=== PATIENT | male | born 1950 | race Caucasian/White ===

== ENCOUNTER 2023-07-05 08:56 | Outpatient (CLI) | payer OTHER, SELFPAY ==
--- NOTE | 2023-07-05 09:30 | ECG_ITS ---
Measurements Intervals [place] Rate: 54 P: 44 RI: 216 QRS: 14 QRSD: 87 T: 31 QT: 391 QTc: 373 Interpretive Statements SINUS BRADYCARDIA WITH FIRST DEGREE AV BLOCK OTHERWISE NORMAL ECG WARNING: DATA QUALITY MAY AFFECT INTERPRETATION NO PREVIOUS ECG AVAILABLE FOR COMPARISON Electronically Signed On 07-05-2023 10:46:54 [employer] by William Medina M.D.
[2023-07-05 10:00] LABS: Anion Gap 4 mmol/L (8-16); Blood Urea Nitrogen 16 mg/dL (9-20); Calcium 8.8 mg/dL (8.4-10.2); Carbon Dioxide 28 mmol/L (22-30); Chloride 106 mmol/L (98-107); Estimated Glomerular Filt Rate > 60; Glucose 96 mg/dL (65-110); Potassium 4.6 mmol/L (3.4-5.0); Sodium 138 mmol/L (137-145)
== END 2023-07-05 08:57 | disposition home or self-care (01) ==
LOC: ANHSURGERY 09:02
PROVIDERS: Anesthesiology; PCP Internal Medicine Geriatric Medicine; Visit Provider Surgery
DX: K42.9 Umbilical hernia without obstruction or gangrene (principal); I10 Essential (primary) hypertension; Z01.818 Encounter for other preprocedural examination; I44.0 Atrioventricular block, first degree
CPT/HCPCS: 36415; 80048; 86850; 86900; 86901; 93005

== ENCOUNTER 2023-07-10 02:08 | Day surgery (SDC) | payer OTHER, SELFPAY ==
--- NOTE | 2023-07-04 15:17 | PC.NURSE ---
Report to the Outpatient Waiting Room, entrance under the green pavilion located off [facility], at time __0730 on date __07/10/23 . Planned Procedure Time: _30 . Time changes happen often and if your time is changed the preop area will call you the afternoon before. - You and your visitor will be asked to self-screen and do not enter if you have any COVID symptoms. - A mask is optional within the hospital at this time. Patients may have clear liquids (water, carbonated beverages, clear teas, apple juice) until 3 hours prior to surgery (6:30 AM)with a maximum of 20 ounces. - No food from midnight until time of surgery Take the following medications with a SIP of water the morning of surgery: ____METOPROLOL DO NOT STOP ANY OF YOUR OTHER PRESCRIPTION MEDICATIONS PRIOR TO SURGERY ?EXCEPT THE FOLLOWING Medications to discontinue per physician ___ALL VITAMINS HOLD 3 DAYS PRE OP.LAST DOSE 07/06/23 Please no make-up, nail english, hairspray, perfume, deodorant, or body powder the day of surgery. No jewelry (including any body piercings) or valuables the day of surgery, leave them at home. Please take a shower or bath the night before, or the morning of, surgery with an antibacterial soap. Wear comfortable, loose fitting clothing. Children are encouraged to wear pajamas. - Jewelry must be removed prior to entering the operating room. Rings and piercings that are not removed may be cut off. - The hospital will not accept responsibility for valuables. - Please leave all valuables, including medications, at home the day of surgery. If you are going home after surgery, a licensed driver license examiner must drive you home. - NO public transportation without another adult if you receive anesthesia. - We recommend that an adult stay with you for 24 hours following discharge. - We also recommend that you do not drive, make important decision, drink alcoholic beverages, or take any drugs that were not prescribed by your health care provider for at least 24 hours after your discharge time. For Pediatric surgeries, we recommend two adults accompany the child home. Follow any additional instructions given to you from your surgeon. If you or anyone in your household have experienced Covid symptoms in the past week, please notify your surgeon or the nurse liaison at the phone number below for possible testing. Telephone instructions given to ___PATIENT and asked if any additional questions and then verbalized understanding. Patient advised to call surgeon office or pre surgery nurse liaison [phone] if any additional questions.
[2023-07-04 15:25] VITALS: BMI 34.8
[2023-07-10] VITALS (10 sets, daily range): BP systolic 112–139; BP diastolic 51–70; PULSE 48–64; RESP 14–16; TEMP 36.4–36.8; O2SAT 99–100
--- NOTE | 2023-07-10 08:21 | PM.IMHP ---
H&P: HPI History of Present Illness Date/Time: 07/10/23 08:21 Chief Complaint: Umbilical hernia Narrative: This is a 72-year-old man who presents for umbilical hernia repair. He denies any changes since last seen in the office. Review of Systems Review of Systems: All systems reviewed & are unremarkable except as noted in HPI and below Constitutional: Constitutional: Denies chills, Denies fever(s), Denies headache(s) and Denies weight loss Eyes: Eyes: Denies change in vision ENT: Denies dizziness, Denies headache(s), Denies neck mass and Denies throat swelling Cardiovascular: Cardiovascular: Denies chest pain, Denies lightheadedness and Denies dyspnea Respiratory: Respiratory: Denies cough, Denies dyspnea and Denies wheezing Gastrointestinal: Gastrointestinal: Denies abdominal pain, Denies change in bowel habits, Denies nausea and Denies vomiting Genitourinary: Genitourinary: Denies hematuria and Denies dysuria Musculoskeletal: Musculoskeletal: Reports as per HPI Integumentary/Breasts: Skin/Breast: Reports as per HPI Neurologic: Denies dizziness and Denies headache(s) Allergic/Immunologic: Allergic/Immunologic: Denies throat swelling and Denies wheezing PMF Past Medical History Medical History (Updated 05/31/23 @ 10:05 by Jacqueline Amato) Heart disease Hypertension Surgical History Surgical History (Updated 05/31/23 @ 09:55 by Jacqueline Amato) History of intravascular stent placement ~ 2012 Family History Family History Father Heart disease Mother Hypertension Social History Social History (Updated 05/31/23 @ 09:43 by Spring Major MA) Smoking status: Never smoker Alcohol intake: current Drinks per week: 20 Living arrangements: with family Occupation/Education: retired Spiritual care concerns: No Meds Home Medications and Allergies Home Medications Medication Instructions Recorded Confirmed Type aspirin 81 mg capsule 81 mg PO DAILY 05/31/23 07/04/23 History lisinopril 20 mg tablet 20 mg PO DAILY 05/31/23 07/04/23 History metoprolol succinate 50 mg 50 mg PO DAILY 05/31/23 07/04/23 History tablet,extended release 24 hr naltrexone 50 mg tablet 50 mg PO DAILY 05/31/23 07/04/23 History omeprazole 20 mg capsule,delayed 20 mg PO DAILY 05/31/23 07/04/23 History release rosuvastatin 40 mg tablet 40 mg PO DAILY 05/31/23 07/04/23 History tamsulosin 0.4 mg capsule 0.4 mg PO DAILY 05/31/23 07/04/23 History torsemide 10 mg tablet 10 mg PO QAM 05/31/23 07/04/23 History cyanocobalamin (vitamin B-12) 1,000 mcg PO DAILY 07/04/23 07/04/23 History 1,000 mcg tablet Allergies Allergy/AdvReac Type Severity Reaction Status Date / Time No Known Allergies Allergy Verified 07/10/23 08:00 Exam Const: General: no acute distress and alert Orientation/consciousness: patient oriented x3 HENMT: Head: normocephalic and atraumatic Ears: hearing grossly normal bilaterally Face/Nose/Sinus: Normal nares present Mouth: Yes Normal oral and palatal mucosa present Eyes: Periorbital: periorbital findings normal Sclera: sclerae normal EOM: EOMs intact bilaterally Neck: Neck: normal visual inspection, no lymphadenopathy and trachea midline Chest: Chest palpation & inspection: normal inspection of the chest Resp: Effort & Inspection: normal respiratory effort Auscultation: clear to auscultation bilaterally Cardio: Jugular venous distension: no JVD Rate: regular rate Rhythm: regular rhythm Heart sounds: S1 normal heart sound present and S2 normal heart sound present Peripheral pulses: Peripheral pulses 2+ throughout GI: Inspection: normal to inspection GI Palp: Yes Soft to palpation, No Tenderness to palpation present (GI), No Guarding due to palpation present (GI), Yes Hernia present umbilical 3-10 cm (Reducible) and No Rebound tenderness present Percussion: Yes normal to percussion Auscultat
--- NOTE | 2023-07-10 08:22 | WPDANESEPPF ---
Anes - Initial Pre Proc Eval Procedure: Operation Date: 07/10/23 09:30 Proposed Procedures p Laparoscopic Umbilical Hernia Repair with Mesh, Davinci Assisted - Jasiel Adams DO Date/Time: 07/10/23 08:22 Surgeon: Jasiel Adams DO Pre Op Diagnosis: 3cm umbilical hernia Patient Data Age: 72 Gender: M Height: 1.8 m Weight: 113.4 kg Allergies Allergy/AdvReac Type Severity Reaction Status Date / Time No Known Allergies Allergy Verified 07/10/23 08:00 Home Medications Medication Instructions Recorded Confirmed Type aspirin 81 mg capsule 81 mg PO DAILY 05/31/23 07/04/23 History lisinopril 20 mg tablet 20 mg PO DAILY 05/31/23 07/04/23 History metoprolol succinate 50 mg 50 mg PO DAILY 05/31/23 07/04/23 History tablet,extended release 24 hr naltrexone 50 mg tablet 50 mg PO DAILY 05/31/23 07/04/23 History omeprazole 20 mg capsule,delayed 20 mg PO DAILY 05/31/23 07/04/23 History release rosuvastatin 40 mg tablet 40 mg PO DAILY 05/31/23 07/04/23 History tamsulosin 0.4 mg capsule 0.4 mg PO DAILY 05/31/23 07/04/23 History torsemide 10 mg tablet 10 mg PO QAM 05/31/23 07/04/23 History cyanocobalamin (vitamin B-12) 1,000 mcg PO DAILY 07/04/23 07/04/23 History 1,000 mcg tablet Patient hx anesthesia problems: none Family hx anesthesia problems: none Results Review: All pre-operative results and documents have been reviewed as part of the pre-operative evaluation. [facility] Past Medical History Medical History Heart disease Hypertension Surgical History Surgical History History of intravascular stent placement ~ 2012 Family History Family History Father Heart disease Mother Hypertension Social History Social History Smoking status: Never smoker Alcohol intake: current Drinks per week: 20 Living arrangements: with family Occupation/Education: retired Spiritual care concerns: No Anes - Eval Final PreProcedure Day of Procedure 07/10/23 08:22 Patient weight: obese Heart: regular rate and rhythm Lungs: clear to auscultation Airway: Mallampati scale class II Neurological: alert and oriented Last oral intake: >/= 8 hours ASA classification: III Emergent: no Anesthetic plan: proceed Anesthesia type and monitoring: general ETT and standard monitoring Results Review: All pre-operative results and documents have been reviewed as part of the pre-operative evaluation. Informed Consent: The patient's anesthetic plan and its attendant risks and benefits were discussed with the patient/family/POA. Questions were solicited and answers provided to the satisfaction of the patient/family/POA.
--- NOTE | 2023-07-10 08:23 | WPDHPUPDATE1 ---
History and Physical Update Update Date/Time: 07/10/23 08:23 History and Physical has been reviewed, including an updated exam of the patient. There are NO changes in the patient's condition. Risks, benefits, and alternatives have been discussed and questions answered. Patient agrees to proceed with procedure.
[2023-07-10] MEDS: ACETAMINOPHEN 500 MG TABLET 1000 MG PO (08:24)
[2023-07-10] MEDS: LACTATED RINGERS 1,000 ML 30 ML IV CONT ×2 (08:30→10:41)
[2023-07-10] MEDS: KETOROLAC 15 MG/ML VIAL (*BKC) IV PUSH (08:50)
[2023-07-10] MEDS: ceFAZolin 2 GM/D5W 50 ML 2 GM/50 ML BAG IVPB (08:51)
[2023-07-10] MEDS: BUPIVACAINE/EPINEPHRINE 0.5% 50 ML VIAL 30 ML INFILTRATE (09:34)
--- NOTE | 2023-07-10 10:30 | W.PM.PROC2 ---
Procedure Note - Detailed Date of Procedure 07/10/23 Pre-op Diagnosis umbilical hernia Post-op Diagnosis Same (3cm umbilical hernia) Procedure Performed Laparoscopic 3 cm umbilical hernia repair with mesh, da Wliver assisted Surgeon Jasiel Adams, DO Anesthesia General and Local (0.5% bupivacaine with epinephrine) Indications This is a 72-year-old man who presented with an umbilical hernia that he 1st noticed about 3 or 4 years ago. It has gradually increased in size and causes occasional discomfort. Overall he is asymptomatic. He was worried about the hernia getting larger and because he has to do a lot of physical activity helping his around the house. A 3 cm umbilical hernia was identified on physical exam. Discussions were made with the patient about treatment options and decision was made to proceed with robotic assisted laparoscopic umbilical hernia repair with mesh. Findings Laparoscopic umbilical hernia repair was performed. The patient was found have a 3 cm umbilical hernia containing preperitoneal. A robotic transabdominal preperitoneal approach was utilized for repair. Once a wide enough preperitoneal pocket was created, I then closed the hernia defect using 0 Stratafix running absorbable suture. Then chose Bard soft mesh 15 cm x [address] within the preperitoneal pocket. No specimens were obtained for pathology. Description of Procedure Procedure as well as risks, benefits, and alternatives were discussed with the patient. Written consent was obtained and placed in chart prior to procedure. Patient was brought back to surgical suite. He was placed supine on operating table. Time-out was done to confirm patient and procedure. He was then intubated by the anesthesia department. A bump was placed under his left hip, and the bed was flexed slightly to extend the space between his costal margin and iliac crest. His abdomen was prepped and draped in sterile fashion using chlorhexidine prep. A 5 millimeter incision was made in the left upper quadrant, and a 5 millimeter Optiview trocar was advanced through the abdominal layers under direct visualization. Once inside the abdominal cavity, carbon dioxide insufflation was used to create a pneumoperitoneum. His abdomen was inspected. An 8 millimeter incision was made in the left lower quadrant, and an 8 millimeter robotic trocar was placed under direct visualization. Another 8 millimeter incision was made in the left lateral abdomen, and an 8 millimeter robotic trocar was placed under direct visualization. 0.5% bupivacaine with epinephrine was infiltrated around each port site. The 5 millimeter port was removed, and an 8 mm robotic trocar was placed under direct visualization. The robotic arms were brought up to the patient's bedside and secured to the ports. The camera and instruments were inserted, and I then moved over to the robotic console and took control of the camera and instruments. After careful thorough inspection of the abdominal cavity, I began my dissection at the hernia. A preperitoneal pocket was started in the left upper quadrant using scissors with electrocautery. The preperitoneal space was then carefully dissected caudally and medially. Hernia sac was reduced and then the preperitoneal plane was dissected further to the right lateral abdomen. I then measured the hernia size. The hernia measured 3 cm. The fascia was closed using an 0-Stratafix running suture in a vertical fashion. A Bard soft mesh 15 cm x 15 cm was then placed within the preperitoneal space. This was oriented vertically with the mesh centered on the hernia defect. The mesh was then secured to the abdominal at the center and 4 corners using 3-0 Vicryl simple interrupted sutures. Peritoneum was then closed over the mesh using a 3 0 V lock running absorbable suture. The repair was inspected, and one final inspection was made around the abdominal cavity. The robotic instruments were then removed
[2023-07-10] MEDS: fentaNYL CITRATE INJ (*CRX) 100 MCG/2 ML VIAL 25 MCG IV PUSH ×4 (10:55→11:22)
[2023-07-10] MEDS: oxyCODONE HCL (*CRX) 5 MG TAB IR PO (12:18)
== END 2023-07-10 13:08 | disposition home or self-care (01) ==
PROVIDERS: PCP Internal Medicine Geriatric Medicine; Visit Provider Surgery
PROC: (CPT 49593; principal; 2023-07-10 09:30)
DX: K42.9 Umbilical hernia without obstruction or gangrene (principal); I11.9 Hypertensive heart disease without heart failure; Z79.82 Long term (current) use of aspirin; Z95.820 Peripheral vascular angioplasty status with implants and grafts; E66.9 Obesity, unspecified; Z68.35 Body mass index [BMI] 35.0-35.9, adult
CPT/HCPCS: 49593; S2900; 36415; 80048; 86850; 86900; 86901; 93005; A9270; C1781; J0690; J1100; J1885; J2250; J2405; J2704; J3010; J7030; J7120